=== PATIENT | female | born 1985 ===

== ENCOUNTER 2017-03-31 16:25 | Emergency (ER) | payer MEDICAID, OTHER ==
[2017-03-31 16:51] VITALS: BP 140/94; PULSE 104; RESP 18; TEMP 98.6; O2SAT 100
--- NOTE | 2017-03-31 16:53 | ED PDOC ---
Arrival/HPI - General Time Seen by Provider: 03/31/17 16:45 Historian: Patient - History of Present Illness Narrative History of Present Illness (Text): 03/31/17 16:45 31 y/o female, no significant pmh, nkda, c/o lt. lower pelvic region redness and pain x 3 days. pt. stated that she sweats a lot, notice to have lt. pelvic region lesion which more painful today, no fever or chills, no night sweat, no numbness or tingling, no palpitation, no diarrhea, no other medical or psychological complaints. Past Medical History - Provider Review Nursing Documentation Reviewed: Yes Family/Social History - Physician Review Nursing Documentation Reviewed: Yes Family/Social History: Unknown Family HX Allergies/Home Meds Allergies/Adverse Reactions: Allergies No Known Allergies Allergy (Verified 03/31/17 16:57) Review of Systems - Review of Systems Constitutional: absent: Fatigue, Fevers Eyes: absent: Vision Changes ENT: absent: Hearing Changes Respiratory: absent: SOB, Cough Cardiovascular: absent: Chest Pain Gastrointestinal: absent: Abdominal Pain, Nausea, Vomiting Skin: Skin Lesions, Cellulitis. absent: Rash, Pruritis, Laceration, Abscess, Ulcer Neurological: absent: Headache, Dizziness Psychiatric: absent: Anxiety, Depression Physical Exam Vital Signs Reviewed: Yes Vital Signs Temp Pulse Resp BP Pulse Ox 03/31/17 16:50 98.6 F 104 H 18 140/94 H 100 Temperature: Afebrile Blood Pressure: Normal Pulse: Tachycardic Respiratory Rate: Normal Appearance: Positive for: Well-Appearing, Non-Toxic Pain Distress: Severe Mental Status: Positive for: Alert and Oriented X 3 - Systems Exam Head: Present: Atraumatic, Normocephalic Pupils: Present: PERRL Extroacular Muscles: Present: EOMI Conjunctiva: Present: Normal Ears: Present: NORMAL TM, Normal Canal. No: Erythema Mouth: Present: Moist Mucous Membranes Neck: Present: Normal Range of Motion Respiratory/Chest: Present: Clear to Auscultation, Good Air Exchange. No: Respiratory Distress, Accessory Muscle Use Cardiovascular: Present: Regular Rate and Rhythm, Normal S1, S2. No: Murmurs Abdomen: Present: Normal Bowel Sounds. No: Tenderness, Distention, Peritoneal Signs, Rebound, Guarding Back: Present: Normal Inspection Upper Extremity: Present: Normal Inspection. No: Cyanosis, Edema Lower Extremity: Present: Normal Inspection. No: Edema Neurological: Present: GCS=15, Speech Normal, Motor Func Grossly Intact, Gait Normal, Memory Normal Skin: Present: Warm, Dry, Rashes (Lt. pelvic region visible with fluctuantcy size approx. [id number] noted with no cellulitis or streaking, no ulcers, no regional lymphenapathy. ), Normal Color Psychiatric: Present: Alert, Oriented x 3, Normal Insight, Normal Concentration Medical Decision Making ED Course and Treatment: 03/31/17 17:07 -keflex/bactrim ds/toradol/percocet 03/31/17 18:06 -sensation intact, motor 5/5, wound irrigate with normal saline 500cc, clean with betadine, 1% lidocaine locally injected approx. 1cc, #11 incision made 1cm incision with approx. 3cc of purulant discharge, 1/4" iodofoam packing inserted , gauze, sensation intact, motor 5/5. -Discharge home with keflex, bactrim ds, naproxen, follow up with your own pmd and general surgeon within 2 days, return to the Er for any new or worsening signs or symptoms. - Medication Orders Current Medication Orders: Discontinued Medications Cephalexin Monohydrate (Keflex) 500 mg PO STAT STA PRN Reason: Protocol Stop: 03/31/17 17:03 Last Admin: 03/31/17 17:27 Dose: 500 mg Ketorolac Tromethamine (Toradol) 60 mg IM STAT STA Stop: 03/31/17 17:03 Last Admin: 03/31/17 17:27 Dose: 60 mg MAR Pain Assessment Document 03/31/17 17:27 EQ (Rec: 03/31/17 17:28 [place] [facility] [id number] Pain Reassessment Is this a pain reassessment? No Sleep Is patient sleeping during reassessment? No Presence of Pain Presence of Pain Yes Pain Scale Used Pain Scale Used Numeric IM Administration Charges Document 03/31/17 17:27 EQ (Rec: 03/31/17 17:28 EQ [facility] [id number] Charges for Administration # of IM Administrations 1 Lidocaine HCl (Lidocaine 1% (20ml)) 1 ml IJ STAT STA Stop: 03/31/17 17:04 Last Admin: 03/31/17 17:26 Dose: 1 ml Oxycodone/Acetaminophen (Percocet 5/325 Mg Tab) 1 tab PO STAT STA Stop: 03/31/17 17:03 Last Admin: 03/31/17 17:27 Dose: 1 tab MAR Pain Assessment Document 03/31/17 17:27 EQ (Rec: 03/31/17 17:27 EQ [facility] [id number]) Pain Reassessment Is this a pain reassessment? No Sleep Is patient sleeping during reassessment? No Presence of Pain Presence of Pain Yes Trimethoprim/Sulfamethoxazole (Bactrim Ds Tab) 1 tab PO STAT STA PRN Reason: Protocol Stop: 03/31/17 17:03 Last Admin: 03/31/17 17:27 Dose: 1 tab - PA / [employer] TECH / Resident Statement / has reviewed & agrees with the documentation as recorded. Disposition/Present on Arrival - Present on Arrival Any Indicators Present on Arrival: No History of DVT/PE: No History of Uncontrolled Diabetes: No Urinary Catheter: No History of Decub. Ulcer: No - Disposition Have Diagnosis and Disposition been Completed?: Yes Diagnosis: Abscess Disposition: HOME/ ROUTINE Disposition Time: 17:10 Patient Plan: Discharge Condition: GOOD Additional Instructions: -Discharge home with keflex, bactrim ds, naproxen, follow up with your own pmd and general surgeon within 2 days, return to the Er for any new or worsening signs or symptoms. Prescriptions: Cephalexin [cephalexin] 500 mg PO QID #40 cap Ibuprofen [Motrin] 600 mg PO QID PRN #30 tab PRN Reason: Other Sulfamethoxazole/Trimethoprim [Bactrim DS 800 mg-160 mg] 1 tab PO BID #20 tab Referrals: [facility] at [facility] [Outside] - Follow up with primary Aaron Tinajero MD [Staff Provider] - Follow up with primary Forms: WORK NOTE
[2017-03-31] MEDS ORDERED: Tmp-Smz 800 mg-160 mg DS Tab PO STA (17:02)
[2017-03-31] MEDS ORDERED: Oxycodone/Acetaminophen 5/325 mg Tab PO STA (17:02)
[2017-03-31] MEDS ORDERED: Lidocaine 1% Inj (20ml) IJ STA (17:03)
== END 2017-03-31 19:01 | disposition home or self-care (01) ==
LOC: ED 16:25
DX: L02.416 Cutaneous abscess of left lower limb (principal)
CPT/HCPCS: 10060; 96372; 99283; J1885

== ENCOUNTER 2017-04-02 21:25 | Emergency (ER) | payer MEDICAID, OTHER ==
[2017-04-02 21:53] VITALS: BP 128/81; PULSE 92; RESP 18; TEMP 98.7; O2SAT 100; BMI 46.3
--- NOTE | 2017-04-02 22:24 | ED PDOC ---
Arrival/HPI - General Chief Complaint: Wound Check Time Seen by Provider: 04/02/17 21:26 Historian: Patient - History of Present Illness Narrative History of Present Illness (Text): 04/02/17 22:21 This 31 yo female with pmh hypothyroidism, presents to this Emergency department for wound check and packing removal. Patient stated she has an I&D x 2 days ago. Patient stated she s complaint to medication. Patient feels wound is not painful, and not discharge was noted. Denies other complain. Time/Duration: Other (see hpi) Context: Home Past Medical History - Provider Review Nursing Documentation Reviewed: Yes - Cardiac Hx Cardiac Disorders: No - Pulmonary Hx Respiratory Disorders: No - Neurological Hx Migraine: Yes - HEENT Hx HEENT Disorder: No - Renal Hx Renal Disorder: No - Endocrine/Metabolic Hx Endocrine Disorders: No - Hematological/Oncological Hx Blood Disorders: No - Integumentary Hx Dermatological Disorder: No - Musculoskeletal/Rheumatological Hx Musculoskeletal Disorders: No - Gastrointestinal Hx Gastrointestinal Disorders: No - Genitourinary/Gynecological Hx Genitourinary Disorders: No - Psychiatric Hx Psychophysiologic Disorder: No Hx Substance Use: No - Anesthesia Hx Anesthesia: Yes Hx Anesthesia Reactions: Yes Hx Malignant Hyperthermia: Yes Family/Social History - Physician Review Nursing Documentation Reviewed: Yes Family/Social History: Other (noncontributory) Smoking Status: Never Smoked Hx Alcohol Use: No Hx Substance Use: No Allergies/Home Meds Allergies/Adverse Reactions: Allergies No Known Allergies Allergy (Verified 04/02/17 21:38) Review of Systems - Review of Systems Constitutional: Normal. absent: Fatigue, Weight Change, Fevers Eyes: Normal ENT: Normal Respiratory: Normal Cardiovascular: Normal Gastrointestinal: Other ((+) left lower abdomen wound). absent: Abdominal Pain , Nausea Genitourinary Female: Normal Musculoskeletal: Normal Skin: Normal Neurological: Normal Endocrine: Normal Hemo/Lymphatic: Normal Psychiatric: Normal Physical Exam Vital Signs Temp Pulse Resp BP Pulse Ox 04/02/17 21:40 98.7 F 92 H 18 128/81 100 Temperature: Afebrile Blood Pressure: Normal Pulse: Regular Respiratory Rate: Normal Appearance: Positive for: Well-Appearing, Non-Toxic, Comfortable Pain Distress: None Mental Status: Positive for: Alert and Oriented X 3 - Systems Exam Head: Present: Atraumatic, Normocephalic Pupils: Present: PERRL Extroacular Muscles: Present: EOMI Conjunctiva: Present: Normal Mouth: Present: Moist Mucous Membranes Neck: Present: Normal Range of Motion Abdomen: Present: Normal Bowel Sounds, Other ((+) LLQ wound is healing well. Packing in place. No discharge or cellulitis). No: Tenderness, Distention, Peritoneal Signs, Rebound, Guarding Upper Extremity: Present: Normal Inspection, Normal ROM Lower Extremity: Present: Normal Inspection, Normal ROM Neurological: Present: GCS=15, CN II-XII Intact, Speech Normal, Motor Func Grossly Intact, Normal Sensory Function, Normal Cerebellar Funct, Gait Normal Skin: Present: Warm, Dry, Normal Color. No: Rashes Medical Decision Making ED Course and Treatment: 04/02/17 22:25 Patient is requesting medication refill. Zynthroid 125 mcg 04/02/17 22:25 Re-evaluation. Patient feels better. Discussed results and plan with patient who expresses understanding. All questions answered and there is agreement with the plan to discharge home with instructions. Patient stable for discharge. Return if symptoms persist or worsen 04/02/17 22:26 Wound dressing changed, and packing was removed. Patient tolerated procedure well. Re-evaluation Time: 22:25 Reassessment Condition: Re-examined, Improved Disposition/Present on Arrival - Present on Arrival Any Indicators Present on Arrival: No History of DVT/PE: No History of Uncontrolled Diabetes: No Urinary Catheter: No History of Decub. Ulcer: No History Surgical Site Infection Following: None - Disposition Have Diagnosis and Disposition been Completed?: Yes Diagnosis: Encounter for wound re-check, Encounter for abscess packing removal, Medication refill Disposition: HOME/ ROUTINE Disposition Time: 22:27 Patient Plan: Discharge Condition: GOOD Additional Instructions: Call private doctor or clinic for follow up visit in 1-2 days. Take medication as instructed by your doctor. return to emergency if infection return or new symptoms. Prescriptions: Levothyroxine [Synthroid] 125 mcg PO DAILY #30 tab Referrals: Alejo Wu, [Primary Care Provider] - Follow up with primary [facility] [Outside] - Follow up with primary [facility] [Outside] - Follow up with primary
== END 2017-04-02 22:46 | disposition home or self-care (01) ==
LOC: ED 21:25
DX: Z48.01 Encounter for change or removal of surgical wound dressing (principal); Z76.0 Encounter for issue of repeat prescription